=== PATIENT | male | born 2000 | race Caucasian/White ===

== ENCOUNTER 2021-02-11 16:21 | Emergency (ER) | payer MEDICAID, OTHER ==
[~2021-02-11] VITALS: Ht 160 cm; Wt 54.5 kg
[2021-02-11 16:31] VITALS: BP 119/60
== END 2021-02-11 19:45 | disposition home or self-care (01) ==
LOC: EMS 16:21
DX: M25.531 Pain in right wrist (principal); F17.210 Nicotine dependence, cigarettes, uncomplicated; F12.90 Cannabis use, unspecified, uncomplicated
CPT/HCPCS: 99283